=== PATIENT | female | born 1965 | race Caucasian/White ===

== ENCOUNTER 2019-11-02 15:57 | Outpatient (CLI) | payer OTHER | END 2019-11-02 15:58 | disposition short-term general hospital (02) | LOC: EMS 15:57 | PROVIDERS: ATTEND Surgery | DX: R07.89 Other chest pain (principal); R42 Dizziness and giddiness; R20.2 Paresthesia of skin | CPT/HCPCS: A0425; A0427 ==

== ENCOUNTER 2019-11-04 18:12 | Outpatient (CLI) | payer OTHER | END 2019-11-04 18:13 | disposition critical access hospital (66) | LOC: EMS 18:12 | PROVIDERS: ATTEND Surgery | DX: R07.89 Other chest pain (principal); R42 Dizziness and giddiness; R20.2 Paresthesia of skin | CPT/HCPCS: A0425; A0427 ==

== ENCOUNTER 2019-11-04 18:41 | Emergency (ER) | payer OTHER ==
--- NOTE | 2019-11-04 18:57 | ED Physician Documentation ---
PD HPI CHEST PAIN - Stated complaint Stated Complaint: CP - Chief complaint Chief Complaint: Cardiac - History obtained from History obtained from: Patient - History of Present Illness Timing - onset: Other (She is had cough and cold for a few days. 2 nights ago she took a vitamin C supplement and shortly thereafter developed chest pressure. She was seen at [facility] although signed out AGAINST MEDICAL ADVICE because of the long wait but I guess she had a cardiac work-up consisting of a troponin which per her report was negative and a chest x-ray that was normal. She was doing well in the interim but took the same vitamin supplement tonight and half an hour later developed substernal chest pressure with bilateral arm tingling. This is similar to what happened on Tuesday night. EKG on the way and was nonischemic. She had aspirin and nitroglycerin. She is pain-free now, just has pressure. No recent travel. No calf pain or pedal edema.) Review of Systems Constitutional: reports: Weight Loss ("nothing tastes good from the cold" 2 lbs). denies: Fever, Chills Nose: reports: Rhinorrhea / runny nose, Congestion Throat: denies: Sore throat Cardiac: reports: Chest pain / pressure. denies: Palpitations, Pedal edema, Calf pain Respiratory: reports: Dyspnea, Cough PD PAST MEDICAL HISTORY - Past Medical History Past Medical History: Yes Cardiovascular: Hypertension Psych: Depression, Anxiety - Present Medications Home Medications: Ambulatory Orders Medication Instructions Recorded Confirmed Albuterol Sulf [Ventolin Hfa 1 - 2 puffs INH Q4HR PRN #1 inhaler 11/04/19 Inhaler] Atenolol [Tenormin] 50 mg PO DAILY 11/04/19 11/04/19 Atorvastatin Calcium 40 mg PO DAILY 11/04/19 11/04/19 Doxycycline Hyclate 100 mg PO BID #20 capsule 11/04/19 Duloxetine HCl 60 mg PO DAILY 11/04/19 11/04/19 Gabapentin 600 mg PO DAILY 11/04/19 11/04/19 Gabapentin 900 mg PO QPM 11/04/19 11/04/19 Trazodone HCl 200 mg PO QPM 11/04/19 11/04/19 predniSONE [Deltasone] 20 mg PO [id number] #21 tab 11/04/19 - Allergies Allergies/Adverse Reactions: Allergies Allergy/AdvReac Type Severity Reaction Status Date / Time No Known Drug Allergies Allergy Verified 11/04/19 19:32 - Social History Does the pt smoke?: Yes Smoking Status: Current every day smoker PD ED PE NORMAL - Vitals Vital signs reviewed: Yes - General General: Alert and oriented X 3, No acute distress - HEENT HEENT: PERRL, EOMI - Neck Neck: Supple, no meningeal sign, No bony TTP - Cardiac Cardiac: RRR, No murmur - Respiratory Respiratory: No respiratory distress, Other (Mildly wheezy and rhonchorous especially at the bases, no other focal findings.) - Abdomen Abdomen: Normal bowel sounds, Soft, Non tender - Back Back: No CVA TTP, No spinal TTP - Derm Derm: Normal color, Warm and dry, No rash - Extremities Extremities: No edema, No calf tenderness / cord - Neuro Neuro: Alert and oriented X 3, Normal speech Results - Vitals Vitals: Vital Signs - 24 hr 11/04/19 11/04/19 11/04/19 18:45 19:06 19:25 Temperature 37.2 C Heart Rate 78 67 66 Respiratory 18 18 20 Rate Blood Pressure 153/68 H 117/70 117/70 O2 Saturation 96 93 94 11/04/19 20:10 Temperature 36.9 C Heart Rate 64 Respiratory 12 Rate Blood Pressure 114/63 O2 Saturation 96 Oxygen O2 Source Room air - EKG (time done) 1850 Rate: Rate (enter#) (68) Rhythm: NSR [place]: Normal Intervals: Normal [place], Other (lafb) QRS: Normal Ischemia: Normal ST segments. No: ST elevation c/w ischemia, ST depression - Labs Labs: Laboratory Tests 11/04/19 11/04/19 11/04/19 19:01 19:01 19:01 WBC 12.9 H RBC 4.74 Hgb 14.9 Hct 45.6 MCV 96.2 MCH 31.4 H MCHC 32.7 RDW 13.5 Plt Count 335 MPV 10.3 Neut # (Auto) 10.5 H Lymph # (Auto) 1.4 L [place] # (Auto) 0.5 Eos # (Auto) 0.1 Baso # (Auto) 0.2 H Absolute Nucleated RBC 0.00 Nucleated RBC % 0.0 Sodium 138 Potassium 4.0 Chloride 100 L Carbon Dioxide 27 Anion Gap 11.0 BUN 12 Creatinine 0.6 Estimated GFR (MDRD) 105 Glucose 99 Calcium 9.1 Total Bilirubin 0.7 AST 26 ALT 29 Alkaline Phosphatase 43 Troponin I High Sens 2.4 Total Protein 6.7 Albumin 4.4 Globulin 2.3 Albumin/Globulin Ratio 1.9 Lipase 32 PD MEDICAL DECISION MAKING - ED course ED course: Records received and reviewed from [facility]. Her troponin was undetectable. Chest x-ray was normal. That combined with the atypical story and a second negative troponin now I think functionally rules her out. She did have some borderline pulse oximetry here and I wonder if she might have some developing COPD and she is treated here for an apparent flare. Follow-up with PCP was advised and return to ED if worse. Heart score is 2 Departure - Departure Disposition: 01 Home, Self Care Clinical Impression: Atypical chest pain, Bronchitis Condition: Good Record reviewed to determine appropriate education?: Yes Instructions: ED Bronchitis Asthmatic, ED Chest Pain Atypical Unkn Cause Prescriptions: Albuterol Sulf [Ventolin Hfa Inhaler] 1 - 2 puffs INH Q4HR PRN #1 inhaler PRN Reason: Shortness Of Air/Wheezing Doxycycline Hyclate 100 mg PO BID #20 capsule predniSONE [Deltasone] 20 mg PO [id number] #21 tab Comments: Return for new or worsening symptoms. Follow-up with your doctor tomorrow, discuss stress testing and follow-up. Try to quit smoking. Discharge Date/Time: 11/04/19 20:13
[2019-11-04 19:05] LABS: BASOPHILS # (AUTO) 0.2 10^3/uL (0.0-0.1); BASOPHILS % (AUTO) 1.2 %; EOSINOPHILS # (AUTO) 0.1 10^3/uL (0.0-0.7); EOSINOPHILS % (AUTO) 0.7 %; HGB - HEMOGLOBIN 14.9 g/dL (12.0-16.0); LYMPHOCYTES # (AUTO) 1.4 10^3/uL (1.5-3.5); LYMPHOCYTES % (AUTO) 10.5 %; MEAN CORPUSCULAR HEMOGLOBIN 31.4 pg (27.0-31.0); MEAN CORPUSCULAR HGB CONC 32.7 g/dL (32.0-36.0); MEAN CORPUSCULAR VOLUME 96.2 fL (81.0-99.0); MEAN PLATELET VOLUME 10.3 fL (7.9-10.8); MONOCYTES # (AUTO) 0.5 10^3/uL (0.0-1.0); NEUTROPHILS # (AUTO) 10.5 10^3/uL (1.5-6.6); NEUTROPHILS % (AUTO) 81.7 %; PLT - PLATELET COUNT 335 10^3/uL (130-450); RED BLOOD COUNT 4.74 10^6/uL (4.20-5.40); RED CELL DISTRIBUTION WIDTH 13.5 % (12.0-15.0); WHITE BLOOD COUNT 12.9 x10^3/uL (4.8-10.8)
[2019-11-04 19:20] LABS: ALBUMIN 4.4 g/dL (3.2-5.5); ALBUMIN/GLOBULIN RATIO 1.9 (1.0-2.2); BILIRUBIN,TOTAL 0.7 mg/dL (0.2-1.0); CALCIUM 9.1 mg/dL (8.5-10.3); CREATININE 0.6 mg/dL (0.4-1.0); TOTAL PROTEIN 6.7 g/dL (6.7-8.2)
[2019-11-04] MEDS ORDERED: predniSONE 20 MG TABLET PO STA (19:53)
[2019-11-04] MEDS ORDERED: DOXYCYCLINE 100 MG TABLET PO STA (19:53)
[2019-11-04 20:13] VITALS: BP 114/63
== END 2019-11-04 20:13 | disposition home or self-care (01) ==
LOC: EDUNIT# → ED 18:41
DX: J40 Bronchitis, not specified as acute or chronic (principal); R07.89 Other chest pain; I44.4 Left anterior fascicular block; I10 Essential (primary) hypertension; F17.200 Nicotine dependence, unspecified, uncomplicated
CPT/HCPCS: 36415; 80053; 83690; 84484; 85025; 93005; 99284; A9270; J7512